=== PATIENT | female | born 1940 | race Caucasian/White ===

== ENCOUNTER 2017-01-31 11:22 | Day surgery (SDC) | payer MEDICARE, BC ==
[2017-01-30 08:37] VITALS: BMI 26.4
[~2017-01-31 11:22] MED LIST: ALBUTEROL NEB (CONC) 2.5 MG/0.5 ML INHALATION ONE; LACTATED RINGERS 1,000 ML IV ONE; LACTATED RINGERS 1,000 ML IV SCH; LIDOCAINE 1% 20 ML VIAL (10MG/ML) FOR IV START INTRADERMA PRN; LIDOCAINE 2% (PF) 20 MG/ML 10ML INHALATION ONE
[2017-01-31 11:48] VITALS: RESP 16; TEMP 97.1
[2017-01-31] MEDS ORDERED: LIDOCAINE 1% INJ 10MG/ML (20 ML MDV) ONE (13:00)
[2017-01-31] MEDS ORDERED: GLYCOPYRROLATE 0.2 MG/ML 2 ML VIAL ONE (13:00)
[2017-01-31] MEDS ORDERED: PROPOFOL 10 MG/ML 20 ML VIAL IV ONE (13:00)
[2017-01-31] MEDS ORDERED: fentaNYL (PF) 50 MCG/ML 2 ML AMP ONE (13:00)
[2017-01-31] MEDS ORDERED: LIDOCAINE 2% INJ 20 MG/ML INTRATRACH ONE (13:24)
--- NOTE | 2017-01-31 13:38 | P.PCN ---
Date of Procedure: 01/31/17 Preoperative Diagnosis: Right lower lobe mass Postoperative Diagnosis: Right lower lobe mass Procedure(s) Performed: Bronchoscopy, bronchoalveolar lavage, endobronchial biopsy, endobronchial brushings Anesthesia: MAC Surgeon: Daniel Burleson Estimated Blood Loss (ml): 0 Condition: stable Disposition: same day Operative Findings: This procedure was done in the bronchoscopy suite. Anesthetic agents was administered by anesthesia the bedside.After achieving adequate sedation, a flexible bronchoscope was inserted through the left nostril and was advanced to the upper airway. Examination of the posterior oropharynx, larynx, epiglottis and vocal cords were all within normal limits. The true and false vocal cords were inspected. The vocal cords were in the midline and there were symmetrical. A total of 2 mL of 1% lidocaine was applied to the vocal cords and following that the bronchoscope was advanced past the vocal cords into the upper trachea. Examination taken bronchial tree was done. Main trachea was within normal. Keshia was sharp in the midline and bilateral mainstem bronchi were patent and within normal limits. Examination of the right upper lobe was within normal. Then the bronchoscope was moved to the right bronchus intermedius that was essentially intact. 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 The tumor was irregular in surface with increased vascularity. The right middle lobe bronchus was patent. Examination of the left side was all within normal limits. At that point, endobronchial biopsies of the right lower lobe mass was done. Multiple endobronchial biopsies obtained and there was minimal amount of blood oozing from the tumor surface that spontaneously stopped. Following that , I performed a bronchial brushings of the right lower lobe endobronchial mass and at the end of the procedure total of 80 mL of fluid was infused into the right lower lobe and around 25 mL of fluid was aspirated. 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 At this point, the bronchoscope was removed and the patient was transferred to recovery in stable condition.
[2017-01-31 14:01] VITALS: BP 131/65; PULSE 68
== END 2017-01-31 14:05 | disposition home or self-care (01) ==
LOC: ORWHC2ENDO 11:22
PROVIDERS: ATTEND Internal Medicine Critical Care Medicine
DX: C34.31 Malignant neoplasm of lower lobe, right bronchus or lung (principal); Z87.891 Personal history of nicotine dependence; R05 Cough; I10 Essential (primary) hypertension; Z79.899 Other long term (current) drug therapy; Z88.1 Allergy status to other antibiotic agents; Z91.040 Latex allergy status
CPT/HCPCS: 94640; 88104; 88108; 88305; 88342; 88341; 31625; 31623; 31624; J2001 ×3; J3010; J2704; 31628